=== PATIENT | female | born 1935 | race African-American/Black ===

== ENCOUNTER 2016-12-26 10:23 | Inpatient (IN) | payer OTHER, MEDICARE, MEDICAID ==
[2016-12-26] VITALS (14 sets, daily range): BP systolic 139–171; BP diastolic 71–91
[~2016-12-26] VITALS: Ht 165.1 cm; Wt 63.5 kg
[~2016-12-26 10:23] MED LIST: Bacitracin 50000 Units Vial ONE; Clindamycin 2 ML ONE; Ropivacaine 5mg/ml Vial 20ml INJ ONE
[2016-12-26] MEDS ORDERED: FUROSEMIDE40 MG ORAL (11:28)
[2016-12-26] MEDS ORDERED: DOCUSATE SODIU100 MG ORAL (11:28)
[2016-12-26] MEDS ORDERED: ZOLPIDEM TARTRA10 MG ORAL (11:28)
[2016-12-26] MEDS ORDERED: FAMOTIDINE20 MG ORAL (11:28)
[2016-12-26] MEDS ORDERED: BENAZEPRIL HCL20 MG ORAL (11:28)
[2016-12-26] MEDS ORDERED: METOPROLOL TART50 MG ORAL (11:28)
[2016-12-26] MEDS ORDERED: NORCO 5-325 TA1 EAC1 ORAL (11:28)
[2016-12-26] MEDS ORDERED: DIGOXIN125 MCG ORAL (11:28)
[2016-12-26] MEDS ORDERED: XARELTO10 MG ORAL (11:28)
[2016-12-26] MEDS ORDERED: POTASSIUM CHLO20 ME1 ORAL (11:28)
[2016-12-26] MEDS ORDERED: FLECAINIDE ACE100 MG ORAL (11:28)
--- NOTE | 2016-12-26 12:45 | Anethesia Preoperative Eval ---
Anesthesia Pre-op PMH/ROS General Date of Evaluation: Dec 26, 2016 Time of Evaluation: 11:45 Anesthesiologist: Felix ASA Score: ASA 3 Mallampati Score Class I : Soft palate, uvula, fauces, pillars visible Class II: Soft palate, uvula, fauces visible Class III: Soft palate, base of uvula visible Class IV: Only hard plate visible Mallampati Classification: Class I Surgeon: Gloria Diagnosis: Rotator cuff tear (L), shoulder pain (L) Surgical Procedure: OPEN REPAIR OF LEFT ROTATOR CUFF Anesthesia History: none Family History: no anesthesia problems Allergies: Coded Allergies: CODEINE (Verified Allergy, Unknown, WELTS/ITCHING, 02/09/10) PENICILLINS (Verified Allergy, Unknown, WELTS/ITCHING, 02/09/10) Medications: see eMAR Past Medical History Cardiovascular: Reports: CAD, arrhythmia, other - ARRHYTHMIA REQUIRING A PACEMAKER PLACEMENT 2 YEARS AGO, hyperlipidemia, valve dz Pulmonary: Reports: asthma Hematology/Immune: Reports: DVT, anemia, other - ON BLOOD THINNER XARELTO PMH Narrative: Pulmonary hypertension on diuretics Congestive heart failure on Digitalis and diuretic therapy PSxH Narrative: mastectomy (R) for breast cancer, chemotherapy Anesthesia Pre-op Phys. Exam Physician Exam Last Vital Signs Date Time Temp Pulse Resp B/P Pulse Ox O2 Delivery O2 Flow Rate FiO2 12/26/16 11:17 97.6 63 18 154/71 100 Room Air Munira Wray M.D. Dec 26, 2016 12:45
--- NOTE | 2016-12-26 12:48 | Anethesia Preoperative Eval ---
Anesthesia Pre-op PMH/ROS General Mallampati Score Class I : Soft palate, uvula, fauces, pillars visible Class II: Soft palate, uvula, fauces visible Class III: Soft palate, base of uvula visible Class IV: Only hard plate visible Mallampati Classification: Class I Allergies: Coded Allergies: CODEINE (Verified Allergy, Unknown, WELTS/ITCHING, 02/09/10) PENICILLINS (Verified Allergy, Unknown, WELTS/ITCHING, 02/09/10) Anesthesia Pre-op Phys. Exam Physician Exam Last Vital Signs Date Time Temp Pulse Resp B/P Pulse Ox O2 Delivery O2 Flow Rate FiO2 12/26/16 11:17 97.6 63 18 154/71 100 Room Air Constitutional: NAD Cardiovascular: other Respiratory: CTA Airway Exam Mallampati Classification class 1 Mallampati Score: Class I MO: limited Neck: cervical spine disease Teeth: missing Anesthesia Pre-op A/P Studies Pre-op Studies: EKG Risk Assessment & Plan Assessment: ASA 3 Plan: GA with LMA or ETT Ultrasoung-guided, nerve stimulator placement of left interscalene block for postop pain management Pre-Antibiotics Drug: Clindamycin Given Within 1 Hr of Incision: Yes Munira Wray M.D. Dec 26, 2016 12:48
[2016-12-26] MEDS ORDERED: Propofol 10mg/ml 20ml IV ONE (13:00)
[2016-12-26] MEDS ORDERED: NS Irrig 1000ml ONE (13:00)
[2016-12-26] MEDS ORDERED: Midazolam 2mg/2ml Inj ONE (13:00)
[2016-12-26] MEDS ORDERED: LR 1000ml ONE (13:00)
[2016-12-26] MEDS ORDERED: Sterile Water Irrig 1000ml IRRIG ONE (13:00)
[2016-12-26] MEDS ORDERED: Esmolol 100mg/10ml Inj ONE (13:00)
[2016-12-26] MEDS ORDERED: fentaNYL 100 mcg/2 mL IV ONE (13:00)
--- NOTE | 2016-12-26 13:12 | Pre-Procedure Note/Attestation ---
Pre-Procedure Note/Attestation Complete Prior to Procedure Planned Procedure: left Procedure Narrative: left6 shouloder open rotator cuff repair Indications for Procedure Pre-Operative Diagnosis: left shopulder rotator cuff repair Attestation I attest that I discussed the nature of the procedure; its benefits; risks and complications; and alternatives (and the risks and benefits of such alternatives ), prior to the procedure, with the patient (or the patient's legal dairy supplies sales representative). I attest that, if there was a reasonable possibility of needing a blood transfusion, the patient (or the patient's legal dairy supplies sales representative) was given the [facility] standardized written summary, pursuant to the Julio Pari Blood Safety Act ([place] Health and Safety Code # 1645, as amended). I attest that I re-evaluated the patient just prior to the surgery and that there has been no change in the patient's H&P, except as documented below: MARVEL WALKER Dec 26, 2016 13:12
[2016-12-26] MEDS ORDERED: fentaNYL 100 mcg/2 mL IV PRN (14:15)
--- NOTE | 2016-12-26 14:17 | Immediate Post-Op Evaluation ---
Immediate Post-Op Evalulation Immediate Post-Op Evalulation Procedure: open repair of Left rotator cuff Date of Evaluation: Dec 26, 2016 Time of Evaluation: 12:14 IV Fluids: 200 LR Blood Products: none Estimated Blood Loss: minimal Urinary Output: not recorded Blood Pressure Systolic: 150 Blood Pressure Diastolic: 80 Pulse Rate: 60 Respiratory Rate: 18 O2 Sat by Pulse Oximetry: 100 Temperature (Fahrenheit): 97 Pain Score (1-10): 4 Nausea: No Vomiting: No Complications none Patient Status: awake, patent Hydration Status: adequate Drug: clinda 300 mg Given Within 1 Hr of Incision: Yes Time Given: 13:24 Munira Wray M.D. Dec 26, 2016 14:17
[2016-12-26] MEDS: Hydromorphone 0.5mg/0.5ml inj IVP PRN ×3 (14:20→15:15)
[2016-12-26] MEDS ORDERED: D5 1/2NS 1,000 ML IV SCH (18:00)
--- NOTE | 2016-12-26 18:51 | Cardiology Progress Note ---
Assessment/Plan Assessment/Plan [id number] s/p shoulder repair paf per hs htn asthma hs of dvt s/p pacemaker implantation hs of cad previously with 60% cx disease diastolic dysfunction mild on preop echo heplock ivf if eating resume usual bp meds anticoagulation for stroke prevention in afib will be resume hen ok with dr troy quiñones safe ambulate when safe lab in am home when ok Objective Last 24 Hour Vital Signs Date Time Temp Pulse Resp B/P Pulse Ox O2 Delivery O2 Flow Rate FiO2 12/26/16 17:45 98.6 61 20 139/83 100 Nasal Cannula 2.0 12/26/16 15:37 98.0 12/26/16 15:36 98.0 62 20 140/91 99 Nasal Cannula 3.0 12/26/16 15:15 61 20 148/78 99 Nasal Cannula 3.0 12/26/16 15:06 64 20 147/80 99 Simple Mask 8.0 12/26/16 14:45 63 20 146/74 99 Simple Mask 8.0 12/26/16 14:37 64 20 141/75 99 Simple Mask 8.0 12/26/16 14:30 63 20 146/74 99 Simple Mask 8.0 12/26/16 14:20 64 20 160/74 99 Simple Mask 8.0 12/26/16 14:17 60 18 100 12/26/16 14:16 63 20 152/81 99 Simple Mask 8.0 12/26/16 14:11 63 20 162/88 99 Simple Mask 8.0 12/26/16 14:06 98.0 63 20 152/91 99 Simple Mask 8.0 12/26/16 11:17 97.6 63 18 154/71 100 Room Air EROS DOWD Dec 26, 2016 18:51
[2016-12-26] MEDS: Benazepril 10mg tab ORAL SCH (19:36)
[2016-12-26] MEDS ORDERED: Zolpidem 5mg tab ORAL PRN (21:00)
[2016-12-26] MEDS ORDERED: Metoprolol Tartrate 50mg tab ORAL SCH (21:00)
[2016-12-26] MEDS: Metoprolol Tartrate 50mg tab ORAL SCH (21:32)
[2016-12-26] MEDS: Docusate 100mg cap ORAL SCH (21:32)
[2016-12-27] VITALS (7 sets, daily range): BP systolic 115–143; BP diastolic 62–87
[2016-12-27] MEDS: Norco 5mg/325mg tab ORAL PRN ×2 (00:16→07:33)
--- NOTE | 2016-12-27 00:46 | History and Physical Report ---
DATE OF ADMISSION: 12/26/2016 EVALUATING PHYSICIAN: Rodolfo German M.D. REFERRING PHYSICIAN: Dontae Castro M.D. REASON FOR REFERRAL: Postoperative cardiac and medical care. HISTORY OF PRESENT ILLNESS: This is an elderly female whose information was obtained from the patient's chart and records that are available. She does have a history of some cardiac issues and possibly has had atrial fibrillation recently. She had permanent pacemaker implanted in [place] for slow heart rate and subsequently she has had irregular heart rate, which I assuming is related to paroxysmal episodes of atrial fibrillation. She presents to the hospital and has undergone a left shoulder open subacromial decompression rotator cuff repair by Dr. Campbell renae. She is being seen postoperatively. She denies any chest pain. She does admit to having some shortness of breath. Apparently, she has had that all the time. There is no PND. She does have dyspnea on exertion. She has even dyspnea on at rest previously. She has occasional dizziness or lightheadedness. She gets occasional palpitations. PAST MEDICAL HISTORY: Positive for history of as mentioned in the chart history of hypertension. She apparently has a history of paroxysmal episodes of atrial fibrillation and hyperlipidemia. She has a history of asthma. She has had permanent pacemaker implantation and she has had prior knee surgery as well as shoulder surgery, cervical fusion, and lumbar surgery on prior occasions as well. She has had a history of coronary artery disease with 60% of the left circumflex artery previously and degenerative joint disease, obesity, and hypertension. She has had a blood clot in her leg as well. MEDICATIONS: Lasix 40 mg daily, Xarelto 20 mg daily, Pepcid 20 mg two times daily, metoprolol 50 mg two times daily, digoxin 0.125 mg daily, benazepril 20 mg two times daily, and Ambien. ALLERGIES: She does indicate she is allergic to penicillin as well as codeine. SOCIAL HISTORY: She does not smoke or drink alcoholic beverages. She lives with her daughter. REVIEW OF SYSTEMS: Gastrointestinal: She has occasional constipation. Denies any nausea at the present time. Genitourinary: She denies any discomfort on urination. Pulmonary: Denies any coughing or wheezing. Constitutional: Denies any fevers or chills or night sweats. Neurologic: Denies. PHYSICAL EXAMINATION: GENERAL: Shows to be elderly female, in no respiratory distress. HEENT: Unremarkable. She has an external jugular IV catheter on the right side. LUNGS: Clear to auscultation and percussion. No wheezes. No crackles noted. CARDIAC: Somewhat irregular. No RV lift, heaves, thrills noted. There is a dressing on the left side of the shoulder and upper chest area. ABDOMEN: Soft and nontender. Positive bowel sounds. EXTREMITIES: There is no clubbing, cyanosis, or any edema. NEUROLOGICAL: She is awake, alert, and responsive, and she moves all four extremities. LABORATORY DATA: She has preoperative evaluation. Echocardiogram is showing 60% to 65% ejection fraction, diastolic relaxation abnormality, mild mitral regurgitation, pulmonary systolic pressure is 38. There are no laboratories postoperatively. ASSESSMENT AND PLAN: 1. Status post left shoulder open subacromial decompression. 2. Paroxysmal episodes of atrial fibrillation. 3. History of hyperlipidemia. 4. History of hypertension. 5. History of asthma. 6. History of thyroid resection. Dr. Adames's patient was seen in cardiac consultation. The patient's only complaint at the present time is shortness of breath. Since she is eating, I have taken liberty of discontinuing IV fluids. Her usual medications for blood pressure and cardiac will be resumed except for anticoagulation with Xarelto. We will start Xarelto if symptoms are okay by you postoperatively to provide stroke prevention and of course DVT prophylaxis. She is on pneumatic compression stockings at home with DVT prophylaxis at the present time. We will provide anticoagulation once safe from a surgical point of view. Rodolfo German M.D. DR: EFRAIN JOB#: [id number] CC: JUAN
--- NOTE | 2016-12-27 07:05 | 48 Hour Post Anesthesia Eval ---
Post Anesthesia Evaluation Procedure: open repair of Left rotator cuff Date of Evaluation: Dec 27, 2016 Time of Evaluation: 06:46 Blood Pressure Systolic: 115 0: 62 Pulse Rate: 60 Respiratory Rate: 18 Temperature (Fahrenheit): 97.2 O2 Sat by Pulse Oximetry: 100 Airway: patent Nausea: No Vomiting: No Pain Intensity: 3 Hydration Status: adequate Cardiopulmonary Status: Stable Mental Status/LOC: patient returned to baseline Follow-up Care/Observations: 0 Post-Anesthesia Complications: 0 Follow-up care needed: N/A Mo Rose MD Dec 27, 2016 07:05
[2016-12-27 08:41] LABS: BASOPHILS % (AUTO) 0.9 % (0.0-2.0); EOSINOPHILS % (AUTO) 1.3 % (0.0-3.0); LYMPHOCYTES % (AUTO) 26.4 % (20.0-45.0); MEAN CORPUSCULAR HEMOGLOBIN 29.1 PG (27.0-31.0); MEAN CORPUSCULAR HGB CONC 32.5 G/DL (32.0-36.0); MEAN CORPUSCULAR VOLUME 90 FL (80-99); MEAN PLATELET VOLUME 5.9 FL (6.5-10.1); MONOCYTES % (AUTO) 7.5 % (1.0-10.0); NEUTROPHILS % (AUTO) 63.9 % (45.0-75.0); PLATELET COUNT 190 K/UL (150-450); RED BLOOD COUNT 4.07 M/UL (4.20-5.40); RED CELL DISTRIBUTION WIDTH 14.2 % (11.6-14.8); WHITE BLOOD COUNT 9.1 K/UL (4.8-10.8)
[2016-12-27] MEDS ORDERED: Xarelto 10mg tab ORAL SCH (09:00)
[2016-12-27 09:05] LABS: ANION GAP 8 (5-15); CALCIUM 8.5 mg/dL (8.6-10.2); CARBON DIOXIDE 31 mEQ/L (20-30); CHLORIDE 101 mEQ/L (98-107); CREATININE 1.1 mg/dL (0.5-0.9); HEMOLYSIS 11; POTASSIUM 4.3 mEQ/L (3.4-4.9); SODIUM 140 mEQ/L (135-145)
[2016-12-27] MEDS: Digoxin 0.125mg tab ORAL SCH (09:22)
[2016-12-27] MEDS: Furosemide 40mg tab ORAL SCH (09:23)
[2016-12-27] MEDS: Docusate 100mg cap ORAL SCH ×2 (09:23→17:32)
[2016-12-27] MEDS: Benazepril 10mg tab ORAL SCH ×2 (09:24→17:32)
[2016-12-27] MEDS: Metoprolol Tartrate 50mg tab ORAL SCH ×2 (09:24→20:56)
[2016-12-27 14:39] LABS: DIGOXIN 0.7 ng/mL (0.5-2.0)
[2016-12-27] MEDS: Norco 10mg/325mg tab ORAL PRN ×2 (14:41→20:57)
--- NOTE | 2016-12-27 17:47 | Cardiology Progress Note ---
Assessment/Plan Assessment/Plan s/p shoulder repair paf per hs htn asthma hs of dvt s/p pacemaker implantation hs of cad previously with 60% cx disease diastolic dysfunction mild on preop echo seems to be doing well tele sensed paced bp controlled walked eating off ivf s/ diuretics anticoagulation for stroke prevention in afib will be resume hen ok with dr troy guerrier by tomorrow or [place] next day lab noted home possibly tomorrow the toe numbness maybe related to the pneumatic stocking no problem with the remainder of her foot adn leg Subjective Cardiovascular: Denies: chest pain, palpitations Respiratory: Reports: SOB with excertion Gastrointestinal/Abdominal: Denies: abdominal pain Genitourinary: Denies: burning Subjective numbness in soem of [place] right foot toes and the back of the foot but had no problem walking felt like room spinning around her head at some point today Objective Last 24 Hour Vital Signs Date Time Temp Pulse Resp B/P Pulse Ox O2 Delivery O2 Flow Rate FiO2 12/27/16 17:32 139/75 12/27/16 15:43 61 12/27/16 15:42 98.1 65 20 139/75 99 Nasal Cannula 2.0 12/27/16 15:40 98.1 12/27/16 11:59 98.1 70 19 128/68 99 Nasal Cannula 2.0 12/27/16 11:32 68 12/27/16 09:26 97.9 61 19 122/71 Nasal Cannula 2.0 12/27/16 09:24 97.9 61 19 122/71 100 Nasal Cannula 2.0 12/27/16 09:24 122/71 12/27/16 09:24 61 122/71 12/27/16 09:22 61 12/27/16 08:32 97.2 12/27/16 07:37 61 12/27/16 07:05 60 18 100 12/27/16 04:00 97.2 60 18 115/62 100 Nasal Cannula 2.0 12/27/16 03:55 60 12/27/16 00:00 97.0 77 18 141/87 100 Nasal Cannula 2.0 12/26/16 23:49 63 12/26/16 21:32 62 147/75 12/26/16 20:00 97.0 59 18 169/75 96 Nasal Cannula 2.0 12/26/16 19:42 171/75 12/26/16 19:36 171/75 12/26/16 19:26 60 12/26/16 17:45 98.6 61 20 139/83 100 Nasal Cannula 2.0 General Appearance: no apparent distress, alert Neck: no JVD Cardiovascular: normal rate, regular rhythm Respiratory/Chest: lungs clear, normal breath sounds Abdomen: normal bowel sounds, non tender, soft Extremities: no swelling Intake and Output 12/26/16 12/27/16 19:00 07:00 Intake Total 460 ml 246 ml Output Total 500 ml 1400 ml Balance -40 ml -1154 ml Intake Oral 460 ml 246 ml Output Urine Total 500 ml 1400 ml # Voids 2 Laboratory Tests Test 12/27/16 07:40 White Blood Count 9.1 K/UL (4.8-10.8) Red Blood Count 4.07 M/UL (4.20-5.40) L Hemoglobin 11.9 G/DL (12.0-16.0) L Hematocrit 36.5 % (37.0-47.0) L Mean Corpuscular Volume 90 FL (80-99) Mean Corpuscular Hemoglobin 29.1 PG (27.0-31.0) Mean Corpuscular Hemoglobin Concent 32.5 G/DL (32.0-36.0) Red Cell Distribution Width 14.2 % (11.6-14.8) Platelet Count 190 K/UL (150-450) Mean Platelet Volume 5.9 FL (6.5-10.1) L Neutrophils (%) (Auto) 63.9 % (45.0-75.0) Lymphocytes (%) (Auto) 26.4 % (20.0-45.0) Monocytes (%) (Auto) 7.5 % (1.0-10.0) Eosinophils (%) (Auto) 1.3 % (0.0-3.0) Basophils (%) (Auto) 0.9 % (0.0-2.0) Sodium Level 140 mEQ/L (135-145) Potassium Level 4.3 mEQ/L (3.4-4.9) Chloride Level 101 mEQ/L (98-107) Carbon Dioxide Level 31 mEQ/L (20-30) H Anion Gap 8 (5-15) Blood Urea Nitrogen 16 mg/dL (7-23) Creatinine 1.1 mg/dL (0.5-0.9) H Estimat Glomerular Filtration Rate mL/min (>60) Glucose Level 75 mg/dL (74-106) Calcium Level 8.5 mg/dL (8.6-10.2) L Magnesium Level 2.0 mg/dL (1.7-2.5) Pro-B-Type Natriuretic Peptide 588 pg/mL (0-450) H Digoxin Level 0.7 ng/mL (0.5-2.0) EROS DOWD Dec 27, 2016 17:47
[2016-12-27] MEDS ORDERED: Zolpidem 5mg tab ORAL PRN (21:00)
[2016-12-28 00:15] VITALS: BP 130/71
[2016-12-28] MEDS: Norco 10mg/325mg tab ORAL PRN ×3 (02:58→15:45)
[2016-12-28 04:03] VITALS: BP 150/71
--- NOTE | 2016-12-28 07:27 | Cardiology Progress Note ---
Assessment/Plan Assessment/Plan s/p shoulder repair paf per hs htn asthma hs of dvt s/p pacemaker implantation hs of cad previously with 60% cx disease diastolic dysfunction mild on preop echo chest wall tenderness / paiin seems to be doing well tele sensed paced bp controlled walked eating off ivf s/ diuretics anticoagulation for stroke prevention in afib will be resume hen ok with dr simmons will check ekg and trop however th pain in the cindy is relatedto skeletal tenderness to palpation will have cxr as well home whe ok with dr simmons and if above are ok will need fu pt understood Subjective Cardiovascular: Reports: chest pain - tender to touch left side the side with her surgery and hadn rest , Denies: lightheadedness Respiratory: Denies: shortness of breath Gastrointestinal/Abdominal: Denies: abdominal pain Genitourinary: Denies: burning Subjective numbness in [place]em of [place] right foot toes and the back of the foot but had no problem walking felt like room spinning around her head at some point today Objective Last 24 Hour Vital Signs Date Time Temp Pulse Resp B/P Pulse Ox O2 Delivery O2 Flow Rate FiO2 12/28/16 04:03 98.8 60 18 150/71 98 Room Air 12/28/16 04:00 60 12/28/16 00:15 98.4 61 19 130/71 97 Room Air 12/28/16 00:00 61 12/27/16 20:56 66 143/75 12/27/16 20:18 98.6 61 18 143/75 98 Room Air 12/27/16 20:00 63 12/27/16 17:32 139/75 12/27/16 15:43 61 12/27/16 15:42 98.1 65 20 139/75 99 Nasal Cannula 2.0 12/27/16 15:40 98.1 12/27/16 11:59 98.1 70 19 128/68 99 Nasal Cannula 2.0 12/27/16 11:32 68 12/27/16 09:26 97.9 61 19 122/71 Nasal Cannula 2.0 12/27/16 09:24 97.9 61 19 122/71 100 Nasal Cannula 2.0 12/27/16 09:24 122/71 12/27/16 09:24 61 122/71 12/27/16 09:22 61 12/27/16 08:32 97.2 12/27/16 07:37 61 General Appearance: no apparent distress, alert Neck: supple Cardiovascular: normal rate, regular rhythm, other - chest wall tneder to palptiaon reproduces pt pain Respiratory/Chest: lungs clear, normal breath sounds Abdomen: normal bowel sounds, non tender, soft Extremities: no swelling Intake and Output 12/27/16 12/28/16 19:00 07:00 Intake Total 565 ml Balance 565 ml Intake Oral 565 ml # Voids 4 4 # Bowel Movements 1 Laboratory Tests Test 12/27/16 07:40 White Blood Count 9.1 K/UL (4.8-10.8) Red Blood Count 4.07 M/UL (4.20-5.40) L Hemoglobin 11.9 G/DL (12.0-16.0) L Hematocrit 36.5 % (37.0-47.0) L Mean Corpuscular Volume 90 FL (80-99) Mean Corpuscular Hemoglobin 29.1 PG (27.0-31.0) Mean Corpuscular Hemoglobin Concent 32.5 G/DL (32.0-36.0) Red Cell Distribution Width 14.2 % (11.6-14.8) Platelet Count 190 K/UL (150-450) Mean Platelet Volume 5.9 FL (6.5-10.1) L Neutrophils (%) (Auto) 63.9 % (45.0-75.0) Lymphocytes (%) (Auto) 26.4 % (20.0-45.0) Monocytes (%) (Auto) 7.5 % (1.0-10.0) Eosinophils (%) (Auto) 1.3 % (0.0-3.0) Basophils (%) (Auto) 0.9 % (0.0-2.0) Sodium Level 140 mEQ/L (135-145) Potassium Level 4.3 mEQ/L (3.4-4.9) Chloride Level 101 mEQ/L (98-107) Carbon Dioxide Level 31 mEQ/L (20-30) H Anion Gap 8 (5-15) Blood Urea Nitrogen 16 mg/dL (7-23) Creatinine 1.1 mg/dL (0.5-0.9) H Estimat Glomerular Filtration Rate mL/min (>60) Glucose Level 75 mg/dL (74-106) Calcium Level 8.5 mg/dL (8.6-10.2) L Magnesium Level 2.0 mg/dL (1.7-2.5) Pro-B-Type Natriuretic Peptide 588 pg/mL (0-450) H Digoxin Level 0.7 ng/mL (0.5-2.0) EROS DOWD Dec 28, 2016 07:27
[2016-12-28 08:00] VITALS: BP 146/79
[2016-12-28 08:45] LABS: BASOPHILS % (AUTO) 0.7 % (0.0-2.0); EOSINOPHILS % (AUTO) 1.3 % (0.0-3.0); LYMPHOCYTES % (AUTO) 23.9 % (20.0-45.0); MEAN CORPUSCULAR HEMOGLOBIN 27.4 PG (27.0-31.0); MEAN CORPUSCULAR HGB CONC 31.4 G/DL (32.0-36.0); MEAN CORPUSCULAR VOLUME 87 FL (80-99); MEAN PLATELET VOLUME 6.1 FL (6.5-10.1); MONOCYTES % (AUTO) 10.3 % (1.0-10.0); NEUTROPHILS % (AUTO) 63.7 % (45.0-75.0); PLATELET COUNT 258 K/UL (150-450); RED BLOOD COUNT 4.14 M/UL (4.20-5.40); RED CELL DISTRIBUTION WIDTH 13.8 % (11.6-14.8); WHITE BLOOD COUNT 7.8 K/UL (4.8-10.8)
[2016-12-28] MEDS: Benazepril 10mg tab ORAL SCH (09:08)
[2016-12-28] MEDS: Digoxin 0.125mg tab ORAL SCH (09:08)
[2016-12-28] MEDS: Furosemide 40mg tab ORAL SCH (09:08)
[2016-12-28] MEDS: Docusate 100mg cap ORAL SCH (09:08)
[2016-12-28] MEDS: Metoprolol Tartrate 50mg tab ORAL SCH (09:10)
[2016-12-28 09:21] LABS: TROPONIN I < 0.30 ng/mL (<=0.30)
[2016-12-28 09:24] LABS: ANION GAP 9 (5-15); CALCIUM 8.6 mg/dL (8.6-10.2); CARBON DIOXIDE 29 mEQ/L (20-30); CHLORIDE 101 mEQ/L (98-107); CREATININE 0.8 mg/dL (0.5-0.9); HEMOLYSIS 1; POTASSIUM 3.6 mEQ/L (3.4-4.9); SODIUM 139 mEQ/L (135-145)
[2016-12-28 12:00] VITALS: BP 125/82
[2016-12-28 16:00] VITALS: BP 142/77
[2016-12-28] MEDS ORDERED: NORCO 5-325 TA1 EACH ORAL (16:03)
--- NOTE | 2016-12-28 16:04 | Discharge Instructions ---
Discharge Instructions Discharge Instructions Special Instructions fu with dr simmons as instructed fuw with raw products director or dr maldonado with in 1 week For Congestive Heart Failure Reminder Report to your physician any weight gain of 5 pounds or more in one week. EROS MALDONADO Dec 28, 2016 16:04
--- NOTE | 2016-12-29 04:32 | Discharge Summary ---
DATE OF ADMISSION: 12/26/2016 DATE OF DISCHARGE: 12/28/2016 DISCHARGE DIAGNOSES: 1. Status post shoulder repair. 2. Paroxysmal episodes of atrial fibrillation. 3. Hypertension. 4. Asthma. 5. Chest wall pain and tenderness. BRIEF HISTORY AND HOSPITAL COURSE: This patient was admitted to the hospital for pain control after she underwent surgery by Dr. Hightower with open repair of the left shoulder rotator cuff and she tolerated that procedure well. Postoperatively, she did have some pain that was managed with some medication, although she is allergic to codeine. She has been able to tolerate Cut Off. Tylenol and Cut Off were given and she seemed to have fairly well rate controlled. She did have some chest wall tenderness and pain on the day of discharge felt to be related to the arm position at this point that she does have in place. In discussion with Dr. Hightower, it was felt that the patient can be resumed back on her Xarelto, which I have told her to do that tomorrow. She is instructed to follow up as an outpatient for further evaluation. Her usual medication will be continued that she was taking including flecainide, digoxin, and she will be discharged home with some Norcos. Rodolfo German M.D. DR: ASAF JOB#: [id number] CC:
--- NOTE | 2016-12-31 08:28 | Diagnostic Imaging Report ---
Indication: Dyspnea Comparison: 12/26/16 A single view chest radiograph was obtained. Findings: Bones are osteopenic. The heart is enlarged. Aorta is enlarged. Lungs are clear. Pacemaker noted. Impression: No acute disease
--- NOTE | 2016-12-31 08:31 | Cardiology Report ---
APPROVED REPORT EKG Measurement Heart [id number] DC 390P [id number] Atrial paced, ventricular sensed rhythm Electronic pacemaker Left ventricular hypertrophy with repolarization abnormality Abnormal ECG
--- NOTE | 2017-01-03 01:45 | Operative Note - Dictated ---
DATE OF OPERATION: 12/26/2016 PREOPERATIVE DIAGNOSIS: Left shoulder displaced rotator cuff tear. POSTOPERATIVE DIAGNOSIS: Left shoulder displaced rotator cuff tear with impingement syndrome. PROCEDURES: 1. Left shoulder acromioplasty, open. 2. Left shoulder open rotator cuff repair with suture anchor. SURGEON: Dontae Castro M.D. SENIOR CARE ASSISTANT: None. PROFESSOR OF MECHANICAL ENGINEERING: Unknown. PREOPERATIVE NOTE: This is a pleasant lady, had severe pain in the left shoulder associated with tear. I explained to her the surgery and the risks being infection, bleeding, anesthetic risks, and failure of the surgery. The patient agreed and consents were obtained. OPERATIVE ROOM NOTE: Under the benefit of endotracheal intubation and general anesthetic, the patient was placed in a beach chair position. The patient's shoulder was prepped and draped in appropriate manner. Incision underlying the subcutaneous tissue down through deltoid. I then split the deltoid removing the bursa. I then proceeded to identify the rotator cuff and it was retracted. I then proceeded to decorticate the bone to repair the rotator cuff and to the bone. I repaired the [id number] repair with FiberWire. I then proceeded to irrigate the wound copiously opening at the subacromial space. I irrigated the wound copiously. Closed the deltoid with 1-0 Vicryl, the subcutaneous tissue with 2-0 Vicryl, and the skin with felix. There are no complications. Dontae Castro M.D. DR: BRIAN JOB#: [id number] CC:
== END 2016-12-28 18:08 | disposition home health service (06) | DRG 512 ==
LOC: SUR 10:23 → 2E 17:20
PROC: 0LQ20ZZ Repair Left Shoulder Tendon, Open Approach (ICD-10-PCS; principal; 2016-12-26 11:30)
PROC: 0RNK0ZZ Release Left Shoulder Joint, Open Approach (ICD-10-PCS; principal; 2016-12-26 11:30)
DX: M75.102 Unspecified rotator cuff tear or rupture of left shoulder, not specified as traumatic (principal); I48.0 Paroxysmal atrial fibrillation; M75.42 Impingement syndrome of left shoulder; I10 Essential (primary) hypertension; E78.5 Hyperlipidemia, unspecified; Z79.01 Long term (current) use of anticoagulants; I25.10 Atherosclerotic heart disease of native coronary artery without angina pectoris; M19.90 Unspecified osteoarthritis, unspecified site; Z86.718 Personal history of other venous thrombosis and embolism; Z88.6 Allergy status to analgesic agent; Z88.0 Allergy status to penicillin; Z98.1 Arthrodesis status; Z95.0 Presence of cardiac pacemaker; J45.909 Unspecified asthma, uncomplicated
CPT/HCPCS: 36415; 71010; 80048; 80162; 83735; 83880; 84484; 85025; 93005; 94003; 94150; J2250; J2405; S0077